=== PATIENT | female | born 1985 | race Caucasian/White ===

== ENCOUNTER 2019-03-18 08:33 | Inpatient (IN) | payer MEDICAID ==
[~2019-03-18] VITALS: Ht 180.3 cm; Wt 98.5 kg
[2019-03-18] VITALS (27 sets, daily range): BP systolic 85–120; BP diastolic 44–96; PULSE 57–93; TEMP 97.7–98.5
[~2019-03-18 08:33] MED LIST: FLAGYL 250250 MG/TAB PO; LEVAQUIN 5500 MG/TA1 PO; NORCO 325 MG-51 TAB PO
[2019-03-18] MEDS ORDERED: PRENATAL (08:55)
[2019-03-18] MEDS ORDERED: PROBIOTIC-SUNMARK (08:56)
--- NOTE | 2019-03-18 09:16 | NUR ---
0855 PATIENT HERE FOR CONTRACTIONS SINCE 040 THAT ARE GETTING STRONGER. ASSESSMENT COMPLETED. EFM ON FHT 135 BABY VERY ACTIVE. CONTRACTIONS 2-3 MIN APART, PATIENT BREATHS THROUGH EACH CONTRACTION. SVE /-2. DR WATKINS CALLED AND UPDATEED AND ORDERS TO ADMIT. IV STARTED IN RIGHT HAND AND LR HUNG PER Sly EDGE RN.
--- NOTE | 2019-03-18 09:18 | NUR ---
REPORT GIVEN TO John DEGROOT RN TO ASSUME CARE AT THIS TIME
[2019-03-18 10:28] LABS: BASO % 0.2 % (0.0-2.0); EOS # 0.1 (0.0-0.7); EOS % 0.6 % (0-4.0); GRAN # 9.9 (1.4-6.5); GRAN % 81.3 % (42.2-75.2); HEMATOCRIT 38.4 % (37.0-47.0); HEMOGLOBIN 12.6 g/dl (12.5-16.0); LYMPH # 1.6 (1.2-3.4); LYMPH % 12.8 % (20.0-51.0); MEAN CELL VOLUME 86 fl (80.0-100.0); MEAN CORPUSCULAR HEMOGLOBIN 28 pg (27.0-31.0); MEAN CORPUSCULAR HGB CONC 33 g/dl (33.0-37.0); MEAN PLATELET VOLUME 10.4 fl (7.4-10.4); MONO # 0.6 (0.1-0.6); MONO % 4.7 % (1.7-9.3); PLATELET COUNT 250 K/mm3 (130-400); RED BLOOD COUNT 4.45 M/mm3 (4.10-5.30); REDCELL DISTRIBUTION WIDTH-CV 12.4 % (11.5-14.5)
--- NOTE | 2019-03-18 11:13 | NUR ---
Dr. Gómez at bedside for AROM. AROM of clear fluid performed by Dr. Gómez. SVE /-1. Uncertain presenting part. Bedside ultrasound confirms breech presentation. Pt prepped for surgery. 1120-Pt taken off monitors. Transfered to OR via bed.
--- NOTE | 2019-03-18 15:20 | NUR ---
Pt up to bathroom under own power. Peripad 80% saturated. Pt ambulated with steady gait and sat on toilet. 3 walnut size clots and approx 100ml free flow noted. Hercules d/c'd, 200ml dark urine drained. Pericare provided, panties and clean pad placed, new gown provided, bed pad replaced. Pt ambulated back to bed under own power, tolerated well. Pt given instruction to call for help if feeling dizzy or lightheaded.
[2019-03-19 00:15] VITALS: BP 95/60; PULSE 70; TEMP 98.6
[2019-03-19 07:00] VITALS: BP 98/67; PULSE 80; TEMP 97.6
[2019-03-19 07:04] LABS: HEMOGLOBIN 10.8 g/dl (12.5-16.0)
[2019-03-19 07:05] LABS: HEMATOCRIT 32.8 % (37.0-47.0)
--- NOTE | 2019-03-19 10:23 | NUR ---
Initial visit; Mom thanked Cloth Stretcher for offering ongratulations and God's blessings for the of her son. Cloth Stretcher thanked family for choosing [facility].
[2019-03-19 16:10] VITALS: BP 106/61; PULSE 66; TEMP 97.9
[2019-03-19 20:30] VITALS: BP 97/50; PULSE 67; TEMP 98.6
[2019-03-20 06:55] VITALS: BP 104/61; PULSE 76; TEMP 98.5
[2019-03-20] MEDS ORDERED: IBU600 MG PO (08:48)
[2019-03-20] MEDS ORDERED: PERCOCET 325 MG1 TA2 PO (08:48)
[2019-03-20 15:52] VITALS: BP 110/58; PULSE 74; TEMP 98.3
[2019-03-20 19:05] VITALS: BP 105/58; PULSE 72; TEMP 98.6
--- NOTE | 2019-03-20 20:17 | NUR ---
2017- ID BRACELETS VERIFIED, BRACELET CUT AND HUGS TAG CUT. DISCHARGE INSTRUCTIONS GIVEN, QUESTIONS ANSWERED. PATIENT DENIED ANY FURTHER NEEDS OR QUESTIONS. PATIENT AND INFANT WALKED TO CAR BY THIS RN. PLACED IN BASE OF CARSEAT, NO COMPLICATIONS.
== END 2019-03-20 20:17 | disposition home or self-care (01) | DRG 788 ==
LOC: LDRO 08:33 → LDR 08:48 → OB 08:48
PROVIDERS: ADMIT Obstetrics & Gynecology
PROC: 10D00Z1 Extraction of Products of Conception, Low, Open Approach (ICD-10-PCS; principal; 2019-03-18)
DX: O64.1XX0 Obstructed labor due to breech presentation, not applicable or unspecified (principal); Z3A.38 38 weeks gestation of pregnancy; Z37.0 Single live birth; Z88.0 Allergy status to penicillin; O99.02 Anemia complicating childbirth
CPT/HCPCS: J0690; J1885; J2400; J2405; J2590; J2791; J2795; J3010; J7120

== ENCOUNTER 2021-01-01 10:02 | Inpatient (IN) | payer MEDICAID ==
[~2021-01-01] VITALS: Ht 180.3 cm; Wt 97.3 kg
[2021-01-01] VITALS (21 sets, daily range): BP systolic 75–139; BP diastolic 36–92; PULSE 49–109; TEMP 97.9–98.5
[~2021-01-01 10:02] MED LIST changes: +IBU600 MG PO; +PERCOCET 325 MG1 TA2 PO; +PRENATAL; +PROBIOTIC-SUNMARK
--- NOTE | 2021-01-01 10:15 | NUR ---
PT ARRIVES ABULATORY TO UNIT FOR SCHEDULED REPEAT CSECTION, DENIES CONTRACTIONS, LEAKING OF FLUID AND REPORTS GOOD MOVEMENT, CLEAN GOWN ON AND ASSISTED INTO BED, PLACED ON EFM, REVIEWED CONSENTS AND ASSESSMENTS 1020: ROLES TO BEDSIDE, ULTRASOUND PERFORMED, BREECH PRESENTATION CONFIRMED, MONS PUBIS TRIMMED WITH CLIPPERS, ABDOMEN CLEANSED 1100: AMBULATORY TO OR WITH SPOUSE.
[2021-01-01 10:38] LABS: BASO % 0.4 % (0.0-2.0); EOS # 0.1 (0.0-0.7); EOS % 0.7 % (0-4.0); GRAN % 66.2 % (42.2-75.2); HEMATOCRIT 36.6 % (37.0-47.0); HEMOGLOBIN 11.9 g/dl (12.5-16.0); LYMPH # 2.4 (1.2-3.4); LYMPH % 26.4 % (20.0-51.0); MEAN CELL VOLUME 85 fl (80.0-100.0); MEAN CORPUSCULAR HEMOGLOBIN 28 pg (27.0-31.0); MEAN CORPUSCULAR HGB CONC 33 g/dl (33.0-37.0); MEAN PLATELET VOLUME 9.7 fl (7.4-10.4); MONO # 0.5 (0.1-0.6); MONO % 5.9 % (1.7-9.3); PLATELET COUNT 267 K/mm3 (130-400); RED BLOOD COUNT 4.32 M/mm3 (4.10-5.30); REDCELL DISTRIBUTION WIDTH-CV 12.9 % (11.5-14.5)
--- NOTE | 2021-01-01 12:20 | NUR ---
PT TO PACU FOLLOWING SECTION, FUNDUS FIRM, LOCHIA WNL, HYPOTENSIVE PER ANESTHESIA UNCHANGED FROM PROCEDURE, RECEIVED FULL REPORT FROM VASQUEZ CUEVAS, LR BOLUS ADMINISTERED TO ASSIST WITH BP'S 1240: BABY BROUGHT TO PACU, SKIN TO SKIN, MATERNAL BLOOD PRESSURES REMAIN STABLE AND HYPOTENSIVE, PT ASYMPTOMATIC, FUNDUS REMAINS FIRM AND LOCHIA SCANT 1300: PT TAKEN VIA BED TO ROOM, ORIENTED TO NEW ROOM AND UPDATED ON PLAN OF CARE
[2021-01-02 05:55] VITALS: BP 99/48; PULSE 47; TEMP 97.8
[2021-01-02 07:15] VITALS: BP 92/52; PULSE 52; TEMP 98.1
[2021-01-02 15:45] VITALS: BP 97/53; PULSE 76; TEMP 97.8
[2021-01-02 19:34] VITALS: BP 95/58; PULSE 96; TEMP 98.7
[2021-01-03 07:15] VITALS: BP 98/54; PULSE 60; TEMP 97.6
--- NOTE | 2021-01-03 07:15 | NUR ---
Rests in bed, alert. Denies any needs or discomfort at this time.
[2021-01-03] MEDS ORDERED: PERCOCET 325 MG1 TA2 PO ×3 (08:47→12:26)
[2021-01-03] MEDS ORDERED: MOTRIN 600600 MG/TAB PO ×3 (08:47→12:26)
--- NOTE | 2021-01-03 15:15 | NUR ---
Rests in bed, alert. Discharge instructions given, verbalizes understanding.
== END 2021-01-03 15:30 | disposition home or self-care (01) | DRG 788 ==
LOC: OB 10:02
PROVIDERS: ADMIT Obstetrics & Gynecology
PROC: 10D00Z1 Extraction of Products of Conception, Low, Open Approach (ICD-10-PCS; principal; 2021-01-01)
DX: O34.211 Maternal care for low transverse scar from previous cesarean delivery (principal); Z3A.39 39 weeks gestation of pregnancy; Z37.0 Single live birth; O32.1XX0 Maternal care for breech presentation, not applicable or unspecified
CPT/HCPCS: J0690; J1885; J2370; J2405; J2590; J2791; J7120

== ENCOUNTER → 2023-11-30 | Outpatient (CLI) | payer MEDICAID ==
[~2023-11-30] MED LIST changes: +MOTRIN 600600 MG/TAB PO
== END ==
LOC: MC.RAD 07:38
DX: Z12.31 Encounter for screening mammogram for malignant neoplasm of breast (principal)